=== PATIENT | female | born 1975 | race Caucasian/White ===

== ENCOUNTER → 2021-03-22 08:05 | Outpatient (CLI) | payer SELFPAY ==
--- NOTE | 2021-03-22 08:09 | DI.US.S_ITS ---
PROCEDURE: US PELVIC COMPLETE INDICATIONS: IUD PLACEMENT, DUB TECHNIQUE: Real-time scanning was performed of the pelvic organs, with image documentation. Additional endovaginal scanning was necessary due to incomplete visualization of the adnexal and endometrial structures by transabdominal scanning. COMPARISON: [facility], US, PELVIC COMPLETE, 03/19/2016, 15:17. FINDINGS: Uterus: Uterus is normal in size at 5.5 x 6.1 x 9.2 cm. The endometrium measures 2.5 mm in combined thickness. Centrally positioned IUD is seen. Ovaries: Normal on the right and left with a right-sided cyst measuring up to 2.6 cm. Therefore, overall the right ovary is relatively larger than that on the left measuring 4.4 x 2.9 x 3.4 cm on the right and 3.7 x 1.6 x 1.5 cm on left. Other: No pathologic free abdominal or pelvic fluid. IMPRESSION: 2.6 cm follicular cyst right ovary, normal-appearing ovaries overall elsewhere. Normal appearing anteverted uterus, IUD centrally positioned within the endometrial canal. Dictated by: Kam Prabhakar M.D. on 03/22/2021 at 12:36 Approved by: Kam Prabhakar M.D. on 03/22/2021 at 12:38
== END ==
PROVIDERS: PCP Obstetrics & Gynecology; Referring Provider Obstetrics & Gynecology; Visit Provider Obstetrics & Gynecology
DX: N93.8 Other specified abnormal uterine and vaginal bleeding (principal); N83.01 Follicular cyst of right ovary; Z97.5 Presence of (intrauterine) contraceptive device
CPT/HCPCS: 76856

== ENCOUNTER → 2021-05-21 09:26 | Outpatient (CLI) | payer SELFPAY ==
--- NOTE | 2021-05-21 09:29 | DI.MG.S_ITS ---
BILATERAL DIGITAL DIAGNOSTIC MAMMOGRAM 3D/2D: 05/21/2021 CLINICAL: Bilateral breast pain. Comparison is made to exams dated: 09/24/2012 mammogram and 09/24/2012 [facility]. The tissue of both breasts is heterogeneously dense. This may lower the sensitivity of mammography. No significant masses, calcifications, or other findings are seen in either breast. IMPRESSION: NEGATIVE There is no abnormality seen in either breast to correspond with the diffuse pain, however, clinical followup is recommended. There is no mammographic evidence of malignancy. A 1 year screening mammogram is recommended. This exam was interpreted at Station ID: [id number]. NOTE: For mammograms, a report in lay terms will be sent to the patient. Approximately 15% of breast malignancies will not be visualized mammographically. In the management of a palpable breast mass, a negative mammogram must not discourage biopsy of a clinically suspicious lesion. Electronically Signed By: Alessandro [email or web address]/faviola:05/21/2021 10:01:51 letter sent: Clinical Evaluation ACR BI-RADS Category 1: Negative [id number]
== END ==
PROVIDERS: PCP Obstetrics & Gynecology; Referring Provider Obstetrics & Gynecology; Visit Provider Obstetrics & Gynecology
DX: N64.4 Mastodynia
CPT/HCPCS: 77066; G0279

== ENCOUNTER → 2024-09-03 12:44 | Outpatient (CLI) | payer OTHER, SELFPAY ==
--- NOTE | 2024-09-03 13:05 | DI.RAD.S_ITS ---
PROCEDURE: XR CHEST 2V INDICATIONS: COUGH TECHNIQUE: 2 views of the chest were acquired. COMPARISON: None. FINDINGS: Heart, mediastinum and pulmonary vasculature: Heart is normal in size and configuration. Mediastinum is unremarkable. Pulmonary vascular is normal. Lungs: Moderate infiltrate is seen throughout the left lower lobe and lingula. Minor airspace disease in the right base more likely represents atelectasis than developing infiltrate. Underlying bronchitis noted Pleural spaces: Normal-no effusions or pneumothorax. Bones and soft tissues: Normal IMPRESSION: Moderate infiltrate left lower lobe and lingula -likely pneumonia Dictated by: Rashid Vergara M.D. on 09/06/2024 at 7:18 Approved by: Rashid Vergara M.D. on 09/06/2024 at 7:19
== END ==
LOC: RAD 12:45
PROVIDERS: PCP Family Medicine; Referring Provider Family Medicine; Visit Provider Family Medicine
DX: R05.9 Cough, unspecified (principal); R91.8 Other nonspecific abnormal finding of lung field
CPT/HCPCS: 71046